=== PATIENT | male | born 1970 | race Caucasian/White ===

== ENCOUNTER 2018-10-12 14:58 | Emergency (ER) | payer MEDICAID ==
--- NOTE | 2018-10-12 16:36 | Emergency Department Record ---
History of Present Illness - General Chief Complaint: Fall Injury Stated Complaint: FALL/RT SHOULDER PAIN Time Seen by Provider: 10/12/18 15:58 Mode of Arrival: Ambulatory - History of Present Illness Initial Comments: fall two days ago on the ice and painful shoulder and unable to raise right arm up over 20 degrees Complaint: Fall Onset/Timin -: Days(s) Fall From: Standing When Fall Occurred: # Days [employer] Place Fall Occurred: Home Loss of Consciousness: None Prolonged Down Time?: No Symptoms Prior to Fall: None Severity scale (1-10): >10 Quality: Aching Associated Symptoms: Denies - [place] Coma Scale Eye Response: (4) Open spontaneously Motor Response: (6) Obeys commands Verbal Response: (5) Oriented [place] Total: 15 - Related Data Previous Rx's Medication Instructions Recorded Naproxen [Naprosyn] 500 mg PO BID #30 tablet 10/12/18 Allergies Allergy/AdvReac Type Severity Reaction Status Date / Time red dye Allergy ANAPHYLAXIS Verified 10/12/18 15:29 Travel Screening - Travel/Exposure Within Last 30 Days Have you traveled within the last 30 days?: No Review of Systems Reviewed: No additional complaints except as noted below Constitutional: Reports: As per HPI. Denies: Chills, Fever, Malaise, Night sweats, Weakness, Weight change Eyes: Reports: As per HPI. Denies: Eye discharge, Eye pain, Photophobia, Vision change ENT: Reports: As per HPI. Denies: Congestion, Dental pain, Ear pain, Epistaxis , Hearing loss, Throat pain Respiratory: Reports: As per HPI. Denies: Cough, Dyspnea, Hemoptysis, Stridor, Wheezes Cardiovascular: Reports: As per HPI. Denies: Arrhythmia, Chest pain, Dyspnea on exertion, Edema, Murmurs, Orthopnea, Palpitations, Paroxysmal nocturnal dyspnea, Rheumatic Fever, Syncope Endocrine: Reports: As per HPI. Denies: Fatigue, Heat or cold intolerance, Polydipsia, Polyuria Gastrointestinal: Reports: As per HPI. Denies: Abdominal pain, Constipation, Diarrhea, Hematemesis, Hematochezia, Melena, Nausea, Vomiting Genitourinary: Reports: As per HPI. Denies: Dysuria, Frequency, Hematuria, Incontinence, Retention, Testicular pain, Testicular mass, Urgency Musculoskeletal: Reports: As per HPI. Denies: Arthralgia, Back pain, Gout, Joint swelling, Myalgia, Neck pain Skin: Reports: As per HPI. Denies: Bruising, Change in color, Change in hair/ nails, Lesions, Pruritus, Rash Neurological: Reports: As per HPI. Denies: Abnormal gait, Confusion, Headache, Numbness, Paresthesias, Seizure, Tingling, Tremors, Vertigo, Weakness Psychiatric: Reports: As per HPI. Denies: Anxiety, Auditory hallucinations, Depression, Homicidal thoughts, Suicidal thoughts, Visual hallucinations Hematological/Lymphatic: Reports: As per HPI. Denies: Anemia, Blood Clots, Easy bleeding, Easy bruising, Swollen glands Past Medical History - SOCIAL HISTORY Smoking Status: Never smoker Alcohol Use: None Drug Use: None - RESPIRATORY Hx Respiratory Disorders: No - CARDIOVASCULAR Hx Cardio Disorders: No - NEURO Hx Neuro Disorders: No - GI Hx GI Disorders: No - Hx Genitourinary Disorders: No - ENDOCRINE Hx Endocrine Disorders: No - MUSCULOSKELETAL Hx Musculoskeletal Disorders: No - PSYCH Hx Psych Problems: No - HEMATOLOGY/ONCOLOGY Hx Hematology/Oncology Disorders: No Family Medical History Any Significant Family History?: Yes Hx Cancer: Mother, Grandparents *Cancer Comment: uncle Physical Exam - General General Appearance: Alert, Oriented x3, Cooperative, No acute distress - Head Head exam: Normal inspection - Eye Eye exam: Normal appearance, PERRL Pupils: Normal accommodation - ENT ENT exam: Normal exam, Mucous membranes moist, Normal external ear exam, Normal orophraynx, TM's normal bilaterally Ear exam: Normal external inspection. negative: External canal tenderness Nasal Exam: Normal inspection. negative: Discharge, Sinus tenderness Mouth exam: Normal external inspection, Tongue normal Teeth exam: Normal inspection. negative: Dental caries Throat exam: Normal inspection. negative: Tonsillar erythema, Tonsillar exudate - Neck Neck exam: Normal inspection, Full ROM. negative: Tenderness - Respiratory Respiratory exam: Normal lung sounds bilaterally. negative: Respiratory distress - Cardiovascular Cardiovascular Exam: Regular rate, Normal rhythm, Normal heart sounds - GI/Abdominal GI/Abdominal exam: Soft, Normal bowel sounds. negative: Tenderness - Rectal Rectal exam: Deferred - exam: Deferred - Extremities Extremities exam: Normal inspection, Normal capillary refill, Tenderness (pain in the right shoulder rotator cuff area) - Back Back exam: Reports: Normal inspection, Full ROM. Denies: Muscle spasm, Rash noted, Tenderness - Neurological Neurological exam: Alert, Normal gait, Oriented X3, Reflexes normal - Psychiatric Psychiatric exam: Normal affect, Normal mood - Skin Skin exam: Dry, Intact, Normal color, Warm Course Vital Signs 10/12/18 15:25 Temperature 97.8 F Pulse Rate 65 Respiratory 16 Rate Blood Pressure 141/100 Pulse Ox 97 Medical Decision Making - Data Complexity MDM Data: X-Ray Ordered and/or Reviewed (No fractures seen) Disposition Clinical Impression: Right shoulder strain Qualifiers: Encounter type: initial encounter Qualified Code(s): S46.911A - Strain of unspecified muscle, fascia and tendon at shoulder and upper arm level, right arm , initial encounter Rotator cuff injury Qualifiers: Encounter type: initial encounter Laterality: right Qualified Code(s): S46.001A - Unspecified injury of muscle(s) and tendon(s) of the rotator cuff of right shoulder, initial encounter Disposition: Home, Self-Care Condition: (1) Good Instructions: Rotator Cuff Injury (ED) Additional Instructions: follow up with Dr Bhandari in one week sling do circles and wallwalking twice a day Prescriptions: Naproxen [Naprosyn] 500 mg PO BID #30 tablet Time of Disposition: 16:34 Quality - Quality Measures Quality Measures: N/A - Blood Pressure Screening Does Patient Have Any of the Following: No Blood Pressure Classification: Hypertensive Reading Systolic Measurement: 141 Diastolic Measurement: 100 Screening for High Blood Pressure: < Pre-Hypertensive BP, F/U Documented > [ G8950] Pre-Hypertensive Follow-up Interventions: Referral to alternative/primary care provider.
[2018-10-12] MEDS: KETOROLAC 60 MG/2 ML VIAL IM STA (16:51)
--- NOTE | 2018-10-13 21:11 | RADIOLOGY REPORT ---
EXAM: SHOULDER, RIGHT HISTORY: FALL, RIGHT SHOULDER PAIN. TECHNIQUE: Three views of the right shoulder. COMPARISON: None. FINDINGS: No definite acute fracture is seen. No evidence of dislocation. Borderline widening of the acromioclavicular joint interval measuring up to 9 mm. Chronic-appearing mild deformity of the distal clavicle, may represent old injury. IMPRESSION: 1. NO DEFINITE ACUTE FRACTURE. 2. BORDERLINE WIDENING OF THE ACROMIOCLAVICULAR JOINT INTERVAL; RECOMMEND CLINICAL CORRELATION FOR AC JOINT INJURY. 3. NOT MENTIONED ABOVE, THERE IS AN OVOID 12 MM LUCENCY NOTED IN THE PROJECTION OF THE SUPERIOR MEDIAL SCAPULA, LIKELY INCIDENTAL AND OF UNCERTAIN SIGNIFICANCE. THIS COULD BE MONITORED WITH FOLLOW-UP RADIOGRAPHS OR POSSIBLY FURTHER CHARACTERIZED WITH MRI. JOB NUMBER: [id number] MTDD
== END 2018-10-12 17:21 | disposition home or self-care (01) ==
LOC: ER 14:58
DX: S46.001A Unspecified injury of muscle(s) and tendon(s) of the rotator cuff of right shoulder, initial encounter (principal); S46.911A Strain of unspecified muscle, fascia and tendon at shoulder and upper arm level, right arm, initial encounter; W00.0XXA Fall on same level due to ice and snow, initial encounter; Y93.H1 Activity, digging, shoveling and raking; Y92.008 Other place in unspecified non-institutional (private) residence as the place of occurrence of the external cause
CPT/HCPCS: 96372; 99283; 99284; J1885

== ENCOUNTER 2019-01-24 20:25 | Emergency (ER) | payer MEDICAID ==
--- NOTE | 2019-01-24 20:32 | Emergency Department Record ---
History of Present Illness - General Chief Complaint: Fall Injury Stated Complaint: FALL Time Seen by Provider: 01/24/19 20:27 Source: Patient, EMS Mode of Arrival: EMS Limitations: Altered mental status - History of Present Illness Initial Comments: 48 yo male presents to ED for evaluation following a trip and fall while crossing the street in [facility], tripped resulting in injury to the head. Cervical collar was applied prior to arrival. Patient denies numbness, tingling, or extremity weakness symptoms. Patient denies the use of anticoagulation med ications, denies health problems at his baseline. MD Complaint: Fall Onset/Timin -: Minutes(s) Fall From: Standing When Fall Occurred: Just prior to arrival Fall Witnessed: Yes, by bystander Place Fall Occurred: Street Loss of Consciousness: Unsure Prolonged Down Time?: No Symptoms Prior to Fall: None Location: Head Quality: Aching Context: Alcohol use - [place] Coma Scale Eye Response: (4) Open spontaneously Motor Response: (6) Obeys commands Verbal Response: (5) Oriented [place] Total: 15 - Related Data Previous Rx's Medication Instructions Recorded Naproxen [Naprosyn] 500 mg PO BID #30 tablet 10/12/18 Allergies Allergy/AdvReac Type Severity Reaction Status Date / Time red dye Allergy ANAPHYLAXIS Verified 10/12/18 15:29 Review of Systems ROS unobtainable: Due to mental status Past Medical History - SOCIAL HISTORY Smoking Status: Never smoker Drug Use: None - RESPIRATORY Hx Respiratory Disorders: No - CARDIOVASCULAR Hx Cardio Disorders: No - NEURO Hx Neuro Disorders: No - GI Hx GI Disorders: No - Hx Genitourinary Disorders: No - ENDOCRINE Hx Endocrine Disorders: No - MUSCULOSKELETAL Hx Musculoskeletal Disorders: No - PSYCH Hx Psych Problems: No - HEMATOLOGY/ONCOLOGY Hx Hematology/Oncology Disorders: No Family Medical History Hx Cancer: Mother, Grandparents *Cancer Comment: uncle Physical Exam - General General Appearance: Alert, Cooperative, Mild distress Limitations: Altered mental status, Other (Intoxicated on examination, answers questions approxpriately) - Head Head exam: Normocephalic Head exam detail: Laceration (Laceration to the left eyebrow region). negative: Abrasion, Contusion, Flores's sign, General tenderness, Hematoma - Eye Eye exam: Normal appearance. negative: Conjunctival injection, Periorbital swelling, Periorbital tenderness, Scleral icterus - ENT Ear exam: negative: Auricular hematoma, Auricular trauma Nasal Exam: negative: Active bleeding, Discharge, Dried blood, Foreign body Mouth exam: negative: Drooling, Laceration, Muffled voice, Tongue elevation - Neck Neck exam: Other (Cervical collar in place on examination) - Respiratory Respiratory exam: Normal lung sounds bilaterally. negative: Rales, Respiratory distress, Rhonchi, Stridor - Cardiovascular Cardiovascular Exam: Regular rate, Normal rhythm, Normal heart sounds - GI/Abdominal GI/Abdominal exam: Soft. negative: Rebound, Rigid, Tenderness - Rectal Rectal exam: Deferred - exam: Deferred - Extremities Extremities exam: Normal inspection. negative: Pedal edema, Tenderness - Back Back exam: Denies: CVA tenderness (R), CVA tenderness (L) - Neurological Neurological exam: Alert. negative: Motor sensory deficit - Psychiatric Psychiatric exam: Normal affect, Normal mood - Skin Skin exam: Normal color. negative: Abrasion Type of lesion: negative: abrasion Course - Reevaluation(s) Reevaluation #1: 01/24/19 20:38 Patient has removed his own cervical collar, attempting to use his mobile phone. Awaiting CT for imaging. Reevaluation #2: 01/24/19 21:52 CT Head: STS left forehead No underlying fracture or sinus opacification No intra-cranial hemorrhage noted 01/24/19 21:59 CT Cervical Spine: Limited by artifact, no gross deformity or fracture identified No STS Degenerative changes are present. In to Room #[address] results with the patient, patient has eloped from the ED. Surrounding areas including parking lot and [address] were searched with evidence of the patient. Police notified. Disposition Disposition: Other (Eloped) Clinical Impression: Alcohol intoxication Qualifiers: Complication of substance-induced condition: uncomplicated Qualified Code(s): F10.920 - Alcohol use, unspecified with intoxication, uncomplicated Fall from standing Qualifiers: Encounter type: initial encounter Qualified Code(s): W19.XXXA - Unspecified fall, initial encounter Eyebrow laceration Qualifiers: Encounter type: initial encounter Laterality: left Qualified Code(s): S01.112A - Laceration without foreign body of left eyelid and periocular area, initial encounter Contusion of head Qualifiers: Encounter type: initial encounter Contusion of head detail: scalp Qualified Code(s): S00.03XA - Contusion of scalp, initial encounter Condition: (2) Stable Forms: Patient Portal Access Time of Disposition: 22:01 Quality - Quality Measures Quality Measures: N/A - Blood Pressure Screening Does Patient Have Any of the Following: No Blood Pressure Classification: Hypertensive Reading Systolic Measurement: 154 Diastolic Measurement: 103 Screening for High Blood Pressure: < First Hypertensive BP, F/U Documented > [G8950] First Hypertensive Follow-up Interventions: Referral to alternative/primary care provider.
--- NOTE | 2019-01-25 21:58 | CT SCAN REPORT ---
EXAM: CT SCAN HEAD WO CONTRAST HISTORY: PATIENT FELL. HEAD INJURY, INTOXICATED. TECHNIQUE: Axial CT scan of the head performed without IV contrast. COMPARISON: None. ENCOUNTER: Initial. FINDINGS: No definite acute intracranial hemorrhage identified. No focal mass effect or midline shift evident. No definite acute infarct or intracranial mass lesion seen. There is some mild soft tissue swelling in the scalp of the left forehead. Underlying frontal sinus appears clear and no definite underlying fracture identified. IMPRESSION: 1. NO DEFINITE ACUTE INTRACRANIAL HEMORRHAGE OR FOCAL MASS EFFECT EVIDENT. 2. SOFT TISSUE SWELLING IN THE LEFT FOREHEAD. JOB NUMBER: [id number] [facility]
--- NOTE | 2019-01-25 22:06 | CT SCAN REPORT ---
EXAM: CT SCAN CERVICAL SPINE WO CONTRAST HISTORY: PATIENT FELL, INTOXICATED, BLUNT TRAUMA. TECHNIQUE: Axial CT scan of the entire cervical spine performed without IV contrast. Sagittal and coronal reformatted images are provided. COMPARISON: No prior cervical study with which to compare. ENCOUNTER: Initial. FINDINGS: Study limited by patient motion artifact, most evident at the approximate C3 level. Given this limitation, no definite fracture of the cervical spine identified. No prevertebral soft tissue swelling evident. There is prominent degenerative change at the odontoid-anterior arch of C1 articulation and some narrowing of the C6-7 interspace with prominent spurring anteriorly. IMPRESSION: 1. STUDY LIMITED BY PATIENT MOTION ARTIFACT. 2. NO GROSS CERVICAL SPINE FRACTURE IDENTIFIED AND NO PREVERTEBRAL SOFT TISSUE SWELLING SEEN. 3. DEGENERATIVE CHANGE IN THE CERVICAL SPINE, MOST MARKED AT THE ODONTOID- ANTERIOR ARCH OF C1 ARTICULATION AND AT THE C6-7 INTERSPACE. 4. IF SYMPTOMS PERSIST, REPEAT CERVICAL SPINE CT WITH SEDATION, IF NECESSARY, TO AVOID MOTION ARTIFACT WOULD BE SUGGESTED. JOB NUMBER: [id number] [facility]
== END 2019-01-24 22:00 | disposition home or self-care (01) ==
LOC: ER 20:25
DX: S01.112A Laceration without foreign body of left eyelid and periocular area, initial encounter (principal); S00.03XA Contusion of scalp, initial encounter; W01.198A Fall on same level from slipping, tripping and stumbling with subsequent striking against other object, initial encounter; Y92.488 Other paved roadways as the place of occurrence of the external cause; F10.920 Alcohol use, unspecified with intoxication, uncomplicated; F17.220 Nicotine dependence, chewing tobacco, uncomplicated
CPT/HCPCS: 70450; 72125; 99283; 99284